=== PATIENT | male | born 1975 | race African-American/Black ===

== ENCOUNTER 2017-12-24 12:32 | Emergency (ER) | payer SELFPAY ==
[2017-12-24 13:01] VITALS: BP 126/92
[2017-12-24] MEDS ORDERED: TETRACAINE HCL 0.5% OPH SOLN 4 ML OS ONE (14:30)
--- NOTE | 2017-12-24 14:39 | ER Document Report ---
HPI - HPI Time Seen by Provider: 12/24/17 14:27 Pain Level: 1 Notes: Patient is a 42-year-old male who presents to the ED complaining of redness to his left eye with scant watery discharge over the last day. Patient states that he does have some irritation to the eye, but does not have a warm body sensation. He does not wear contact lenses. Patient states he has had some nasal congestion discharge recently. Patient states that he did have matting to his eye this morning. Denies drug allergies. No other concerns or complaints. Denies any headache, fever, neck pain, changes in vision/speech/ mentation/hearing, sore throat, chest pain, palpitations, syncope, cough, shortness of breath, wheeze, dyspnea, abdominal pain, nausea/vomiting/diarrhea, urinary retention, dysuria, hematuria, or rash. - ROS Systems Reviewed and Negative: Yes All other systems reviewed and negative Past Medical History - Social History Smoking Status: Unknown if Ever Smoked Family History: Reviewed & Not Pertinent - Immunizations Hx Diphtheria, Pertussis, Tetanus Vaccination: Yes Vertical Provider Document - CONSTITUTIONAL Agree With Documented VS: Yes Notes: PHYSICAL EXAMINATION: GENERAL: Well-appearing, well-nourished and in no acute distress. A&Ox4 HEAD: Atraumatic, normocephalic. EYES: Pupils equal round and reactive to light, extraocular movements intact, sclera anicteric, left conjunctiva injected w/o discharge or matting. Non- tender to palp of the globe and eye itself. No surrounding erythema or swelling noted. Visual acuity 20/20 b/l and in each eye (performed by myself at bedside with my own eye chart). Wood's lamp/flourescein: No abrasion, laceration, ulceration, or ned sign noted. No obvious foreign body appreciated. ENT: EAC clear b/l. TM's intact b/l without erythema, fluid, or perforation. Nares patent and without discharge. oropharynx clear without exudates. No tonsilar hypertrophy or erythema. Moist mucous membranes. No sinus tenderness. Uvula midline. No palatine shift. No airway compromise. No drooling or hoarseness. NECK: Normal range of motion, supple without lymphadenopathy. No rigidity/ meningismus. LUNGS: Breath sounds clear to auscultation bilaterally and equal. No wheezes rales or rhonchi. HEART: Regular rate and rhythm without murmurs, rubs, gallops. NEUROLOGICAL: Cranial nerves grossly intact. Normal speech, normal gait. Normal sensory, motor exams PSYCH: Normal mood, normal affect. SKIN: Warm, Dry, normal turgor, no rashes or lesions noted. - INFECTION CONTROL TRAVEL OUTSIDE OF THE [place] IN LAST 30 DAYS: No Course - Re-evaluation Re-evalutation: 12/24/17 14:37 Patient is an afebrile, well-hydrated, 42-year-old male who presents to the ED with acute conjunctivitis to his left eye. Vitals are acceptable. PE is otherwise unremarkable. I do suspect that his conjunctivitis is most likely viral, but I will send him home with a prescription for Polytrim as precaution. No labs or imaging warranted at this time. Low suspicion for any retained corneal or lid foreign body, deep space infection including orbital cellulitis/ abscess, acute glaucoma, penetrating globe injury, retinal detachment, meningitis, sepsis, fracture, compartment syndrome. Conservative measures otherwise for symptoms with proper handwashing. Recheck with your PCM in 3-5 days. Schedule a f/u with Ophthalmology next week. Return to the ED with any worsening/concerning symptoms otherwise as reviewed in discharge. Patient is in agreement. - Vital Signs Vital signs: Temp Pulse Resp BP Pulse Ox 97.9 F 94 18 126/92 H 97 12/24/17 13:00 12/24/17 13:00 12/24/17 13:00 12/24/17 13:00 12/24/17 13:00 Discharge - Discharge Clinical Impression: Acute conjunctivitis, left eye Qualifiers: Acute conjunctivitis type: unspecified Qualified Code(s): H10.32 - Unspecified acute conjunctivitis, left eye Condition: Stable Disposition: HOME, SELF-CARE Instructions: Conjunctivitis ([facility]), Eyedrop Use ([facility]) Additional Instructions: Keep eyes clean Avoid scratching/touching eyes Wash hands regularly Use eye drops as directed Maintain adequate fluid intake tylenol/ibuprofen as needed over the counter cold medication as needed for symptoms F/u: with your PCM in 3-5 days for a recheck Consider consult with Ophthalmology for ongoing/worsening symptoms Return to the ED with any worsening symptoms and/or development of fever, headache, changes in vision, eye pain, worsening eye redness, redness around the eyes, purulent discharge, sore throat, facial swelling, neck pain/stiffness , chest pain, palpitations, syncope, shortness of breath, trouble breathing, abdominal pain, n/v/d, blood in stool/urine, dysuria, or other worsening symptoms that are concerning to you. Prescriptions: Polymyxin B Sulf/Trimethoprim [Polytrim Eye Drops] 1 drop OD Q3H #10 ml Forms: Elevated Blood Pressure Referrals: SHARON MAHMOOD MD [ACTIVE STAFF] - Follow up as needed
== END 2017-12-24 15:01 | disposition home or self-care (01) ==
LOC: ER 12:32
DX: H10.32 Unspecified acute conjunctivitis, left eye (principal)
CPT/HCPCS: 99283; J3490

== ENCOUNTER 2019-03-12 12:42 | Emergency (ER) | payer SELFPAY ==
[2019-03-12 13:05] VITALS: BP 131/90
--- NOTE | 2019-03-12 13:31 | ER Document Report ---
HPI - HPI Patient complains to provider of: skin irritation Time Seen by Provider: 03/12/19 13:18 Onset: Other Onset/Duration: Persistent Pain Level: 1 Context: 43-year-old male presents emergency department with complaints of skin irritation. Reports he has area on the right side of his groin for the past couple months that is very itchy. He recently treated with Lamisil. He reports now he has circular areas all over his body. Denies these areas being itchy. Denies fever vomiting diarrhea. Denies past medical history of eczema or psoriasis. Associated Symptoms: None Exacerbated by: Denies Relieved by: Denies Similar symptoms previously: No Recently seen / treated by doctor: No - REPRODUCTIVE Reproductive: DENIES: : Past Medical History - Social History Smoking Status: Current Every Day Smoker Chew tobacco use (# tins/day): No Frequency of alcohol use: Occasional Drug Abuse: Marijuana Family History: Reviewed & Not Pertinent Patient has suicidal ideation: No Patient has homicidal ideation: No Renal/ Medical History: Denies: Hx Peritoneal Dialysis - Immunizations Hx Diphtheria, Pertussis, Tetanus Vaccination: Yes Vertical Provider Document - CONSTITUTIONAL Agree With Documented VS: Yes Exam Limitations: No Limitations General Appearance: WD/WN, No Apparent Distress - INFECTION CONTROL TRAVEL OUTSIDE OF THE [place] IN LAST 30 DAYS: No - HEENT HEENT: Atraumatic, Normocephalic. negative: Conjuctival Injection - NECK Neck: Normal Inspection, Supple. negative: Lymphadenopathy-Left, L ymphadenopathy-Right - RESPIRATORY Respiratory: Breath Sounds Normal, No Respiratory Distress - CARDIOVASCULAR Cardiovascular: Regular Rate, Regular Rhythm - GI/ABDOMEN Gastrointestinal: Abdomen Soft, Abdomen Non-Tender - BACK Back: Normal Inspection - MUSCULOSKELETAL/EXTREMETIES Musculoskeletal/Extremeties: MAEW, FROM - NEURO Level of Consciousness: Awake, Alert, Appropriate Motor/Sensory: No Motor Deficit - DERM Integumentary: Warm, Dry, Rash - Tinea noted to right groin, circular shape about 5 to 6 cm around, no open wounds. Multiple smaller circular areas approximately 6 to 7mm noted to patients trunk, left dorsal hand. Course - Re-evaluation Re-evalutation: 03/12/19 16:37 Patient was instructed on tinea. Instructed to use cream twice a day follow-up with primary care provider or dermatology. He was instructed to return here for worsening symptoms. He verbalized understanding to all instructions - Vital Signs Vital signs: Temp Pulse Resp BP Pulse Ox 98.6 F 77 16 131/90 H 97 03/12/19 12:58 03/12/19 12:58 03/12/19 12:58 03/12/19 12:58 03/12/19 12:58 Discharge - Discharge Clinical Impression: Tinea, Tinea cruris Condition: Stable Disposition: HOME, SELF-CARE Instructions: [employer], Ringworm (Tinea Corporis) ([facility]), Topical Antifungal ([facility]) Additional Instructions: *You have been treated for skin area, tinea cruris *Monitor your skin for worsening symptoms and infection. *Apply the cream twice a day Avoid itching, take Benadryl as indicated, avoid hot showers *Follow up with a primary care provider or cloth classer within 1 week *Return to ED for signs of infection, worsening condition, changes, needs Prescriptions: Ketoconazole/Hydrocortisone [Hydrocort 2.5%-Ketoconazole 2%] 30 gm TP BID #1 cream..g. Forms: Elevated Blood Pressure
== END 2019-03-12 14:09 | disposition home or self-care (01) ==
LOC: ER 12:42
DX: B35.6 Tinea cruris (principal); F17.200 Nicotine dependence, unspecified, uncomplicated
CPT/HCPCS: 99282